=== PATIENT | female | born 2000 | race Caucasian/White ===

== ENCOUNTER 2018-01-19 14:08 | Emergency (ER) | payer BC ==
[2018-01-19] MEDS ORDERED: ONDANSETRON 4 MG/2 ML VIAL ONE (14:36)
[2018-01-19] MEDS ORDERED: NA CHLORIDE 0.9% 1,000 ML ONE (14:36)
[2018-01-19 14:59] LABS: Absolute Lymphocytes (CBC) 0.7 K/uL (0.7-4.9); Absolute Monocytes 0.4 K/uL (0.1-1.3); Absolute Neutrophil 7.8 K/uL (1.8-8.0); Basophils % 0.5 % (0-1.3); Eosinophils % 0.2 % (0-4.4); Hematocrit 43.4 % (36.0-45.0); MCH 31.1 pg (27.0-35.0); MCV 91.3 fL (80-100); MPV 8.9 fL (7.6-11.3); Monocytes % 4.5 % (3.3-12.3); RBC Red Blood Cell Count 4.75 M/uL (3.86-4.86)
--- NOTE | 2018-01-19 15:03 | RAD REPORT ---
EXAM DESCRIPTION: Spike Single View01/19/2018 2:53 pm CLINICAL HISTORY: Chest pain COMPARISON: none FINDINGS: The lungs appear clear of acute infiltrate. The heart is normal size IMPRESSION: No acute abnormalities displayed
[2018-01-19 15:04] LABS: Protime INR 1.13
[2018-01-19 15:26] LABS: ALT/SGPT 20 U/L (12-78); AST/SGOT 13 U/L (15-37); Albumin 4.5 g/dL (3.4-5.0); Alkaline Phosphatase 90 U/L (45-117); BUN Blood Urea Nitrogen 9 mg/dL (7-18); Bicarbonate 21 mmol/L (21-32); Bilirubin Direct 0.2 mg/dL (0-0.2); Bilirubin Total 0.6 mg/dL (0.2-1.0); CKMB Creatine Kinase MB < 1.0 ng/mL (0.3-3.6); Creatine Phosphokinase 50 U/L (26-192); Glucose Level 127 mg/dL (74-106); Magnesium 2.3 mg/dL (1.8-2.4); NT PRO-BNP 10 pg/mL (<125); Potassium 3.3 mmol/L (3.5-5.1); Protein, Total 8.1 g/dL (6.4-8.2); Sodium Level 136 mmol/L (136-145)
[2018-01-19 15:52] LABS: Blood Morphology Comment NOT SEEN (NOT SEEN); Platelet Estimate ADEQ; Urine White Blood Cell Casts OK
--- NOTE | 2018-01-19 16:24 | ER ---
Nurse's Notes [facility] Name: Clarita Murguia Age: 17 yrs Sex: Female : 2000 Arrival Date: 01/19/2018 Time: 14:12 Bed 17 Private MD: out of town, doctor Diagnosis: Anxiety disorder, unspecified;Major depressive disorder, single episode, mild;Chest pain, unspecified;Tachycardia, unspecified;Urinary tract infection, site not specified Presentation: 01/19 14:18 Presenting complaint: Patient states: "I am throwing up and now my arms are numb.". lk1 Transition of care: patient was not received from another setting of care. Onset of symptoms was January 19, 2018 at 10:00. Risk Assessment: Do you want to hurt yourself or someone else? Patient reports no desire to harm self or others. Initial Sepsis Screen: Does the patient meet any 2 criteria? No. Patient's initial sepsis screen is negative. Does the patient have a suspected source of infection? No. Patient's initial sepsis screen is negative. Care prior to arrival: None. 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 - Social history:: Smoking status: Patient/guardian denies using tobacco. - Ebola Screening: : No symptoms or risks identified at this time. - Family history:: not pertinent. - Hospitalizations: : No recent hospitalization is reported. - History obtained from: mother, aunt. Screenin:46 Abuse screen: Denies threats or abuse. Denies injuries from another. Nutritional hb screening: No deficits noted. Tuberculosis screening: No symptoms or risk factors identified. Fall Risk None identified. Assessment: 14:46 General: Appears in no apparent distress. Behavior is calm, cooperative. Pain: Denies hb pain. Neuro: Level of Consciousness is awake, alert, obeys commands, Oriented to person, place, time, situation. Cardiovascular: Heart tones S1 S2 present Capillary refill < 3 seconds Patient's skin is warm and dry. Respiratory: Airway is patent Trachea midline Respiratory effort is even, unlabored, Respiratory pattern is regular, Breath sounds are clear bilaterally. GI: Abdomen is non-distended, Bowel sounds present X 4 quads. Abd is soft and non tender X 4 quads. Reports nausea. : No signs and/or symptoms were reported regarding the genitourinary system. EENT: No signs and/or symptoms were reported regarding the EENT system. Derm: No signs and/or symptoms reported regarding the dermatologic system. Skin is intact, is healthy with good turgor, Skin is pink, warm \\T\\ dry. Musculoskeletal: No signs and/or symptoms reported regarding the musculoskeletal system. 15:28 Reassessment: Patient appears in no apparent distress at this time. No changes from hb previously documented assessment. Patient and/or family updated on plan of care and expected duration. Pain level reassessed. Patient is alert, oriented x 3, equal unlabored respirations, skin warm/dry/pink. Vital Signs: 14:19 BP 115 / 89; Pulse 102; Resp 15; Temp 98.4(TE); Pulse Ox 100% on R/A; Weight 77.11 kg lk1 (R); Height 5 ft. 8 in. (172.72 cm) (R); Pain 0/10; 15:15 BP 116 / 78; Pulse 92; Resp 15; Pulse Ox 100% on R/A; hb 14:19 Body Mass Index 25.85 (77.11 kg, 172.72 cm) lk1 ED Course: 14:12 Patient arrived in ED. mr 14:12 out of town, doctor is Private Physician. mr 14:18 Triage completed. lk1 14:21 Arm band placed on right wrist. lk1 14:27 [facility] kav 14:27 Alexander Miguel MD is Attending Physician. kav 14:32 Lolis Torrez RN is Primary Nurse. hb 14:40 Inserted saline lock: 20 gauge in right antecubital area, using aseptic technique. hb Blood collected. 14:46 Patient has correct armband on for positive identification. Placed in gown. Bed in low hb position. Call light in reach. Side rails up X 1. 14:48 X-ray completed. Portable x-ray completed in exam room. Patient tolerated procedure ml well. 14:50 XRAY Chest (1 view) In Process Unspecified. EDMS 14:59 EKG done, by biomedical equipment tech. reviewed by Zara MARTINEZ. 3 15:41 Urine collected: clean catch specimen, blood tinged. [facility] 16:30 No provider procedures requiring assistance completed. IV discontinued, intact, hb bleeding controlled, No redness/swelling at site. Pressure dressing applied. Administered Medications: 14:45 Drug: Zofran 4 mg Route: IVP; Site: right antecubital; hb 15:05 Follow up: Response: No adverse reaction; Nausea is decreased hb 14:46 Drug: NS 0.9% 1000 ml Route: IV; Rate: 1000 ml; Site: right antecubital; hb 15:50 Follow up: Response: No adverse reaction; IV Status: Completed infusion hb Outcome: 16:24 Discharge ordered by . odalys 16:30 Discharged to home ambulatory, with family. hb 16:30 Condition: stable 16:30 Discharge instructions given to patient, Instructed on discharge instructions, follow up and referral plans. medication usage, Demonstrated understanding of instructions, follow-up care, medications, Prescriptions given X 2. 16:50 Patient left the ED. Signatures: Dispatcher [employer] EDMS Zara Oneal, Sarita Farah mr Clif[place], Eden Lea, RN RN lk1 Lolis Torrez RN RN Sarita [facility] Glendy Esquivel 3
--- NOTE | 2018-01-19 16:24 | EDPHYS ---
Physician Documentation [facility] Name: Clarita Murguia Age: 17 yrs Sex: Female : 2000 Arrival Date: 01/19/2018 Time: 14:12 Bed 17 Private MD: out of town, doctor ED Physician Alexander Miguel HPI: 01/19 14:28 This 17 yrs old Female presents to ER via Ambulatory with complaints of kav Vomiting, Numbness Of Arm. 14:49 The patient or guardian reports chest pain that is located primarily in the xyphoid kav area and mid-sternal area. The patient presents to the emergency department with nausea, that is mild, vomiting. Onset: The symptoms/episode began/occurred acutely, just prior to arrival. Possible causes: unknown. The symptoms are aggravated by nothing. The pain does not radiate. Associated signs and symptoms: The patient has no apparent associated signs or symptoms, Pertinent positives: vomiting, Pertinent negatives: fever. Associated signs and symptoms:. The chest pain is described as burning. Duration: The patient or guardian reports a single episode, that is still ongoing. Modifying factors: The symptoms are alleviated by nothing. Severity of pain: At its worst the pain was mild just prior to arrival. Patient reports that her father in June 2017 with AMI \T\ age 59 and mother has HTN. Also c/o paresthesia bilateral upper extremities at time of onset of chest pain but has now resolved in the ED setting.. 15:07 Patient reports recently being initiated on Antidepressent: Wellbutrin 150 mg kav approximately 7 days and dose was doubled yesterday 01/18/18 to 300 mg according to PCP RX: Directions.. 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 - Social history:: Smoking status: Patient/guardian denies using tobacco. - Ebola Screening: : No symptoms or risks identified at this time. - Family history:: not pertinent. - Hospitalizations: : No recent hospitalization is reported. - History obtained from: mother, aunt. ROS: 15:05 Constitutional: Negative for fever, chills, and weight loss, Eyes: Negative for injury, kav pain, redness, and discharge, ENT: Negative for injury, pain, and discharge, Neck: Negative for injury, pain, and swelling, Respiratory: Negative for shortness of breath, cough, wheezing, and pleuritic chest pain, Abdomen/GI: Negative for abdominal pain, nausea, vomiting, diarrhea, and constipation, Back: Negative for injury and pain, : Negative for injury, bleeding, discharge, and swelling, MS/Extremity: Negative for injury and deformity, Skin: Negative for injury, rash, and discoloration, Neuro: Negative for headache, weakness, numbness, tingling, and seizure, Allergy/Immunology: Negative for hives, rash, and allergies, Endocrine: Negative for neck swelling, polydipsia, polyuria, polyphagia, and marked weight changes, Hematologic/Lymphatic: Negative for swollen nodes, abnormal bleeding, and unusual bruising. 15:05 Cardiovascular: Positive for chest pain, of the mid-sternal area and xyphoid area. 15:05 Neuro: Positive for tingling, of the right arm and left arm. 15:05 Psych: Positive for anxiety, depression. Exam: 15:05 Constitutional: This is a well developed, well nourished patient who is awake, alert, kav and in no acute distress. Head/Face: Normocephalic, atraumatic. Eyes: Pupils equal round and reactive to light, extra-ocular motions intact. Lids and lashes normal. Conjunctiva and sclera are non-icteric and not injected. Cornea within normal limits. Periorbital areas with no swelling, redness, or edema. ENT: Nares patent. No nasal discharge, no septal abnormalities noted. Tympanic membranes are normal and external auditory canals are clear. Oropharynx with no redness, swelling, or masses, exudates, or evidence of obstruction, uvula midline. Mucous membranes moist. Neck: Trachea midline, no thyromegaly or masses palpated, and no cervical lymphadenopathy. Supple, full range of motion without nuchal rigidity, or vertebral point tenderness. No Meningismus. Chest/axilla: Normal chest wall appearance and motion. Nontender with no deformity. No lesions are appreciated. Respiratory: Lungs have equal breath sounds bilaterally, clear to auscultation and percussion. No rales, rhonchi or wheezes noted. No increased work of breathing, no retractions or nasal flaring. Abdomen/GI: Soft, non-tender, with normal bowel sounds. No distension or tympany. No guarding or rebound. No evidence of tenderness throughout. Back: No spinal tenderness. No costovertebral tenderness. Full range of motion. Skin: Warm, dry with normal turgor. Normal color with no rashes, no lesions, and no evidence of cellulitis. MS/ Extremity: Pulses equal, no cyanosis. Neurovascular intact. Full, normal range of motion. Neuro: Awake and alert, GCS 15, oriented to person, place, time, and situation. Cranial nerves II-XII grossly intact. Motor strength 5/5 in all extremities. Sensory grossly intact. Cerebellar exam normal. Normal gait. 15:05 Cardiovascular: Rate: normal, Rhythm: regular, Pulses: no pulse deficits are appreciated, Pulses are 2+ in right radial artery, right brachial artery, left radial artery, left brachial artery, left carotid pulse and right carotid pulse. Heart sounds: Edema: is not appreciated, JVD: is not appreciated. 15:05 ECG was reviewed by the Attending Physician. nsr 15:05 Psych: Behavior/mood is cooperative, anxious, depressed, Affect is flat. Vital Signs: 14:19 BP 115 / 89; Pulse 102; Resp 15; Temp 98.4(TE); Pulse Ox 100% on R/A; Weight 77.11 kg lk1 (R); Height 5 ft. 8 in. (172.72 cm) (R); Pain 0/10; 15:15 BP 116 / 78; Pulse 92; Resp 15; Pulse Ox 100% on R/A; hb 14:19 Body Mass Index 25.85 (77.11 kg, 172.72 cm) lk1 MDM: 14:27 Medical screening is not applicable. [facility] 16:48 Data reviewed: vital signs, nurses notes, lab test result(s), EKG, radiologic studies. [facility] 01/19 14:39 Order name: Basic Metabolic Panel; Complete Time: 16:31 [facility] 01/19 16:32 Interpretation: K 3.3; GLUC 127; GFR 64. 01/19 14:39 Order name: CBC with Diff; Complete Time: 16:46 [facility] 01/19 15:21 Interpretation: RIGO% 86.8; LYM% 8.0. 01/19 14:39 Order name: Ckmb; Complete Time: 16:46 v 01/19 16:46 Interpretation: Within normal limits. 01/19 14:39 Order name: CPK; Complete Time: 16:09 v 01/19 16:09 Interpretation: Within normal limits. 01/19 14:39 Order name: LFT's; Complete Time: 16:46 01/19 16:46 Interpretation: Normal except: AST 13; GLOB 3.6. 01/19 14:39 Order name: Magnesium; Complete Time: 16:46 v 01/19 16:46 Interpretation: Within normal limits. 01/19 14:39 Order name: NT PRO-BNP; Complete Time: 16:32 01/19 16:32 Interpretation: Within normal limits. 01/19 14:39 Order name: PT-INR; Complete Time: 15:21 01/19 15:21 Interpretation: Normal except: PT 13.3. 01/19 14:39 Order name: Ptt, Activated; Complete Time: 15:21 01/19 15:21 Interpretation: Within normal limits. 01/19 14:39 Order name: Troponin (emerg Dept Use Only); Complete Time: 15:21 01/19 15:21 Interpretation: Within normal limits. 01/19 14:39 Order name: XRAY Chest (1 view); Complete Time: 15:20 01/19 15:20 Interpretation: No acute disease. 01/19 15:06 Order name: CBC Smear Scan; Complete Time: 16:09 EDMS 01/19 16:09 Interpretation: Within normal limits. 01/19 15:57 Order name: Urine Dipstick--Ancillary (enter results); Complete Time: 16:46 ag 01/19 16:46 Interpretation: UKET 1+; UBLD 3+; UESTR TRACE. 01/19 15:57 Order name: Urine --Ancillary (enter results); Complete Time: 16:46 ag 01/19 16:46 Interpretation: Within normal limits. 01/19 14:39 Order name: Urine Test (obtain specimen); Complete Time: 15:42 01/19 14:39 Order name: EKG; Complete Time: 14:40 kav 01/19 14:39 Order name: Cardiac monitoring; Complete Time: 15:53 kav 01/19 14:39 Order name: EKG - Nurse/Tech; Complete Time: 15:53 kav 01/19 14:39 Order name: IV Saline Lock; Complete Time: 15:53 kav 01/19 14:39 Order name: Labs collected and sent; Complete Time: 15:53 kav 01/19 14:39 Order name: O2 Per Protocol; Complete Time: 15:53 kav 01/19 14:39 Order name: O2 Sat Monitoring; Complete Time: 15:53 kav 01/19 14:39 Order name: Urine Dipstick-Ancillary (obtain specimen); Complete Time: 15:42 kav Administered Medications: 14:45 Drug: Zofran 4 mg Route: IVP; Site: right antecubital; hb 15:05 Follow up: Response: No adverse reaction; Nausea is decreased hb 14:46 Drug: NS 0.9% 1000 ml Route: IV; Rate: 1000 ml; Site: right antecubital; hb 15:50 Follow up: Response: No adverse reaction; IV Status: Completed infusion hb Disposition: 01/19/18 16:24 Discharged to Home. Impression: Anxiety disorder, unspecified, Major depressive disorder, single episode, mild, Chest pain, unspecified, Tachycardia, unspecified, Urinary tract infection, site not specified. - Condition is Stable. - Discharge Instructions: Nonspecific Chest Pain, Chest Wall Pain, Paroxysmal Supraventricular Tachycardia, Urinary Tract Infection, Ixer-ow-Ishe, Social Anxiety Disorder, Panic Attacks, [id number]. - Prescriptions for Ibuprofen 800 mg Oral Tablet - take 1 tablet by ORAL route every 8 hours As needed take with food; 30 tablet. Cipro 500 mg Oral Tablet - take 1 tablet by ORAL route every 12 hours for 7 days; 14 tablet. - Medication Reconciliation Form, Thank You Letter, Antibiotic Education, Prescription Opioid Use form. - Follow up: Private Physician; When: 5 - 6 days; Reason: Recheck today's complaints, Continuance of care, Re-evaluation by your physician. - Problem is new. - Symptoms have improved. - Notes: Consider weaning off of Wellbutrin owing to side effects of medication: Xerestomia, Headache, Nausea, Dizziness, Tachycardia Please f/u with your PCP regarding this matter before you stop taking this medicaion Addendum: 01/26/2018 11:24 Co-signature as Attending Physician, Alexander Miguel MD I agree with the assessment and k dr plan of care. Signatures: Dispatcher [employer] EDOH Alexander Miguel MD MD kdr Zara Oneal, SET OFF PRESS OPERATOR SET OFF PRESS OPERATOR ka Eden Castillo RN RN lk1 Lolis Torrez RN RN Corrections: (The following items were deleted from the chart) 01/19 16:47 15:21 Normal except: RIGO% 86.8; LYM% 8.0. kav ka 16:48 16:24 01/19/2018 16:24 Discharged to Home. Impression: Anxiety disorder, unspecified; kav Major depressive disorder, single episode, mild; Chest pain, unspecified; Tachycardia, unspecified. Condition is Stable. Discharge Instructions: Nonspecific Chest Pain, Chest Wall Pain, Paroxysmal Supraventricular Tachycardia, Social Anxiety Disorder, Panic Attacks, Ionr-hs-Mvyy. Prescriptions for Ibuprofen 800 mg Oral Tablet - take 1 tablet by ORAL route every 8 hours As needed take with food; 30 tablet. and Forms are Medication Reconciliation Form, Thank You Letter, Antibiotic Education, Prescription Opioid Use. Follow up: Private Physician; When: 5 - 6 days; Reason: Recheck today's complaints, Continuance of care, Re-evaluation by your physician. Problem is new. Symptoms have improved. ka 16:50 16:48 01/19/2018 16:24 Discharged to Home. Impression: Anxiety disorder, unspecified; hb Major depressive disorder, single episode, mild; Chest pain, unspecified; Tachycardia, unspecified; Urinary tract infection, site not specified. Condition is Stable. Discharge Instructions: Nonspecific Chest Pain, Chest Wall Pain, Paroxysmal Supraventricular Tachycardia, Social Anxiety Disorder, Panic Attacks, Qvrm-[id number]. Prescriptions for Ibuprofen 800 mg Oral Tablet - take 1 tablet by ORAL route every 8 hours As needed take with food; 30 tablet. and Forms are Medication Reconciliation Form, Thank You Letter, Antibiotic Education, Prescription Opioid Use. Follow up: Private Physician; When: 5 - 6 days; Reason: Recheck today's complaints, Continuance of care, Re-evaluation by your physician. Problem is new. Symptoms have improved. kav
[2018-01-19 16:36] LABS: Urine Blood 3+ (NEG); Urine Glucose NEGATIVE (NEG); Urine Protein TRACE (NEG); Urine Specific Gravity 1.025 (1.005-1.030); Urine pH >8.5 (5.0-7.0)
--- NOTE | 2018-01-20 06:26 | EKG ---
Test Date: 2018-01-19 Test Time: 14:52:23 Clinical Safety Manager: NITIN MEASUREMENT RESULTS: Intervals: Rate: 95 AL: 168 QRSD: 80 QT: 344 QTc: 432 [place]: P: 39 AL: 168 QRS: 76 T: 47 INTERPRETIVE STATEMENTS: Normal sinus rhythm with sinus arrhythmia Nonspecific T wave abnormality Abnormal ECG No previous ECG available for comparison Electronically Signed On 01-20-18 06:25:13 CDT by Ethan Cole
== END 2018-01-19 16:50 | disposition home or self-care (01) ==
LOC: ER 14:08
DX: R07.9 Chest pain, unspecified (principal); R00.0 Tachycardia, unspecified; F41.9 Anxiety disorder, unspecified; F32.9 Major depressive disorder, single episode, unspecified; Z88.2 Allergy status to sulfonamides; N39.0 Urinary tract infection, site not specified
CPT/HCPCS: 36415; 71045; 80048; 80076; 81003; 81025; 82550; 82553; 83735; 83880; 84484; 85025; 85610; 85730; 93005; 96361; 96374; 99284; J2405; J7030

== ENCOUNTER 2018-08-21 14:12 | Emergency (ER) | payer BC ==
[2018-08-21] MEDS ORDERED: LORAZEPAM 1 MG TABLET ONE (15:05)
--- NOTE | 2018-08-21 15:27 | EDPHYS ---
Physician Documentation [facility] Name: Clarita Murguia Age: 18 yrs Sex: Female : 2000 Arrival Date: 08/21/2018 Time: 14:16 Bed 23 Private MD: ED Physician Arabella Johnson HPI: 08/21 15:11 This 18 yrs old Female presents to ER via Ambulatory with complaints of ma2 Breathing Difficulty. 15:11 The patient has shortness of breath at rest. Onset: The symptoms/episode began/occurred ma2 gradually, 3 month(s) ago. Duration: The symptoms are chronic. Associated signs and symptoms: Pertinent positives: anxiety, Pertinent negatives: diaphoresis, fever, loss of consciousness. Severity of symptoms: At their worst the symptoms were mild moderate in the emergency department the symptoms are unchanged. The patient has experienced similar episodes in the past. Historical: - Allergies: 14:18 Sulfa (Sulfonamide Antibiotics); sv - PMHx: 14:18 Anxiety; Depression; sv - PSHx: 14:18 Appendectomy; sv - Immunization history:: Adult Immunizations up to date. - Social history:: Smoking status: Patient/guardian denies using tobacco, Patient/guardian denies using alcohol, street drugs, The patient lives with family. - Ebola Screening: : No symptoms or risks identified at this time. - Family history:: not pertinent. ROS: 15:11 Constitutional: Negative for fever, chills, and weight loss, Cardiovascular: Negative ma2 for chest pain, palpitations, and edema, Respiratory: Negative for shortness of breath, cough, wheezing, and pleuritic chest pain, Abdomen/GI: Negative for abdominal pain, nausea, diarrhea, and constipation, : Negative for injury, bleeding, discharge, and swelling, MS/Extremity: Negative for injury and deformity, Psych: Negative for depression, anxiety, suicide ideation, homicidal ideation, and hallucinations, Allergy/Immunology: Negative for hives, rash, and allergies. 15:11 Psych: Positive for anxiety, Negative for depression, auditory hallucinations, visual hallucinations, suicide gesture. 15:11 All other systems are negative. Exam: 15:11 Constitutional: This is a well developed, well nourished patient who is awake, alert, ma2 and in no acute distress. Chest/axilla: Normal chest wall appearance and motion. Nontender with no deformity. No lesions are appreciated. Cardiovascular: Regular rate and rhythm with a normal S1 and S2. No gallops, murmurs, or rubs. Normal PMI, no JVD. No pulse deficits. Respiratory: Lungs have equal breath sounds bilaterally, clear to auscultation and percussion. No rales, rhonchi or wheezes noted. No increased work of breathing, no retractions or nasal flaring. Abdomen/GI: Soft, non-tender, with normal bowel sounds. No distension or tympany. No guarding or rebound. No evidence of tenderness throughout. 15:11 MS/ Extremity: Pulses equal, no cyanosis. Neurovascular intact. Full, normal range of motion. Neuro: Awake and alert, GCS 15, oriented to person, place, time, and situation. Cranial nerves II-XII grossly intact. Motor strength 5/5 in all extremities. Sensory grossly intact. Cerebellar exam normal. Normal gait. 15:11 Psych: Affect is anxius. Vital Signs: 14:18 BP 121 / 87; Pulse 100; Resp 22; Temp 97; Pulse Ox 100% ; Weight 74.84 kg; Height 5 ft. sv 8 in. (172.72 cm); Pain 0/10; 15:45 BP 124 / 74; Pulse 75; Resp 17; Pulse Ox 99% on R/A; aj 14:18 Body Mass Index 25.09 (74.84 kg, 172.72 cm) sv MDM: 14:20 Patient medically screened. ma2 15:11 Differential diagnosis: Anxiety Reaction Psychogenic. Antibiotic administration: Not ma2 indicated. Data reviewed: vital signs, nurses notes. Counseling: I had a detailed discussion with the patient and/or guardian regarding: the historical points, exam findings, and any diagnostic results supporting the discharge/admit diagnosis, the presence of at least one elevated blood pressure reading (>120/80) during this emergency department visit, the need for outpatient follow up. Administered Medications: 14:56 Drug: Ativan 1 mg Route: PO; aj 15:47 Follow up: Response: Marked relief of symptoms; Anxiety decreased aj Disposition: 08/21/18 15:26 Discharged to Home. Impression: Anxiety disorder, unspecified. - Condition is Stable. - Discharge Instructions: Panic Attacks, Generalized Anxiety Disorder. - Prescriptions for Ativan 0.5 mg Oral Tablet - take 1 tablet by ORAL route every 8 hours As needed; 20 tablet. - Medication Reconciliation Form, Thank You Letter, Antibiotic Education, Prescription Opioid Use form. - Follow up: Private Physician; When: Tomorrow; Reason: Continuance of care. - Problem is new. Signatures: Joie Ni RN Billie Oden RN RN aj Alzahri, Mohammad, MD MD ma2 Corrections: (The following items were deleted from the chart) 15:48 15:26 08/21/2018 15:26 Discharged to Home. Impression: Anxiety disorder, unspecified. aj Condition is Stable. Forms are Medication Reconciliation Form, Thank You Letter, Antibiotic Education, Prescription Opioid Use. Follow up: Private Physician; When: Tomorrow; Reason: Continuance of care. Problem is new. ma2
--- NOTE | 2018-08-21 15:27 | ER ---
Nurse's Notes [facility] Name: Clarita Murguia Age: 18 yrs Sex: Female : 2000 Arrival Date: 08/21/2018 Time: 14:16 Bed 23 Private MD: Diagnosis: Anxiety disorder, unspecified Presentation: 08/21 14:17 Presenting complaint: Patient states: panic attack has been going on "awhile but today sv it feels different." Pt has seen her PCP and prescribed Hydroxyzine and Trentellix. c/o SOB. Transition of care: patient was not received from another setting of care. Onset of symptoms is unknown. Care prior to arrival: None. 14:17 Method Of Arrival: Ambulatory sv 14:17 Acuity: MARIANA 4 sv 15:47 Risk Assessment: Do you want to hurt yourself or someone else? Patient reports no aj desire to harm self or others. Initial Sepsis Screen: Does the patient meet any 2 criteria? No. Patient's initial sepsis screen is negative. Does the patient have a suspected source of infection? No. Patient's initial sepsis screen is negative. Historical: - Allergies: 14:18 Sulfa (Sulfonamide Antibiotics); sv - PMHx: 14:18 Anxiety; Depression; sv - PSHx: 14:18 Appendectomy; sv - Immunization history:: Adult Immunizations up to date. - Social history:: Smoking status: Patient/guardian denies using tobacco, Patient/guardian denies using alcohol, street drugs, The patient lives with family. - Ebola Screening: : No symptoms or risks identified at this time. - Family history:: not pertinent. Screenin:22 Abuse screen: Denies threats or abuse. Denies injuries from another. Nutritional aj screening: No deficits noted. Tuberculosis screening: No symptoms or risk factors identified. Fall Risk None identified. Assessment: 14:22 General: Appears in no apparent distress. comfortable, Behavior is cooperative, aj appropriate for age, anxious. Pain: Denies pain. Neuro: Level of Consciousness is awake, alert, obeys commands, Oriented to person, place, time, situation, Appropriate for age. Cardiovascular: Denies chest pain, Capillary refill < 3 seconds in bilateral fingers Rhythm is regular. Respiratory: Reports shortness of breath Airway is patent Respiratory effort is even, unlabored, Respiratory pattern is regular, symmetrical, Breath sounds are clear bilaterally. Derm: Skin is intact, is healthy with good turgor, Skin is pink, warm \\T\\ dry. normal. 14:24 Reassessment: Patient sitting on bed in NAD, with video game in hand. Respirations are aj even and unlabored. Mother reports patient has seen PCP for this same complaint, and also called PCP this AM and was instructed to double up on Hydroxizine. Patient reports no relief of symptoms. 14:57 Reassessment: Patient appears in no apparent distress at this time. No changes from aj previously documented assessment. Patient and/or family updated on plan of care and expected duration. Pain level reassessed. Patient is alert, oriented x 3, equal unlabored respirations, skin warm/dry/pink. Patient laying down in bed, appears relaxed and in NAD. 15:45 Reassessment: Patient appears in no apparent distress at this time. No changes from aj previously documented assessment. Patient and/or family updated on plan of care and expected duration. Pain level reassessed. Patient is alert, oriented x 3, equal unlabored respirations, skin warm/dry/pink. Patient states feeling better. Patient states symptoms have improved. Vital Signs: 14:18 BP 121 / 87; Pulse 100; Resp 22; Temp 97; Pulse Ox 100% ; Weight 74.84 kg; Height 5 ft. sv 8 in. (172.72 cm); Pain 0/10; 15:45 BP 124 / 74; Pulse 75; Resp 17; Pulse Ox 99% on R/A; aj 14:18 Body Mass Index 25.09 (74.84 kg, 172.72 cm) sv ED Course: 14:16 Patient arrived in ED. mr 14:17 Triage completed. sv 14:20 Arabella Johnson MD is Attending Physician. ma2 14:22 Billie Frias, RN is Primary Nurse. aj 14:22 Patient has correct armband on for positive identification. aj 15:45 No provider procedures requiring assistance completed. Patient did not have IV access aj during this emergency room visit. Administered Medications: 14:56 Drug: Ativan 1 mg Route: PO; aj 15:47 Follow up: Response: Marked relief of symptoms; Anxiety decreased aj Outcome: 15:26 Discharge ordered by . ma2 15:45 Discharged to home ambulatory, with family. aj 15:45 Condition: good 15:45 Discharge instructions given to patient, family, Instructed on discharge instructions, follow up and referral plans. medication usage, Demonstrated understanding of instructions, follow-up care, medications, Prescriptions given X 1. 15:48 Patient left the ED. [place] Signatures: Joie Ni RN RN sv Myers, Amanda, RN RN aj Rivera, Jayne mr Alex, MD HELENA Bell ma2 Corrections: (The following items were deleted from the chart) 14:18 14:17 Presenting complaint: Patient states: panic attack has been going on "awhile but sv today it feels different." Pt has seen her PCP and prescribed Hydroxyzine and Trentellix. sv 14:18 14:17 Acuity: MARIANA 5 sv sv
== END 2018-08-21 15:48 | disposition home or self-care (01) ==
LOC: ER 14:12
DX: F41.9 Anxiety disorder, unspecified (principal); Z88.2 Allergy status to sulfonamides
CPT/HCPCS: 99283